=== PATIENT | female | born 1985 | race African-American/Black ===

== ENCOUNTER 2020-03-05 00:07 | Emergency (ER) | payer OTHER ==
[~2020-03-05] VITALS: Ht 157.5 cm; Wt 51.7 kg
[~2020-03-05 00:07] MED LIST: PRENATAL-FOLIC1 EACH PO
[2020-03-05] MEDS ORDERED: ROBAXIN-750750 MG PO (02:34)
[2020-03-05] MEDS ORDERED: KEFLEX500 MG PO (02:34)
--- NOTE | 2020-03-06 21:30 | EKG ---
[facility] [address] [place], [place] [address] Signed Normal sinus rhythm Normal ECG No previous ECGs available Confirmed by NIELS MERCADO MD ([id number]) on 03/06/2020 9:30:31 PM Electronically Signed By: NIELS MERCADO MD 03/06/200 PATIENT NAME: LYLE ROBISONMYNOR [place] Electrocardiogram DATE OF : 83 PHYSICIAN: NIELS MERCADO MD REPORT #: [id number] REPORT IS CONFIDENTIAL AND NOT TO BE RELEASED WITHOUT AUTHORIZATION
== END 2020-03-05 02:54 | disposition home or self-care (01) ==
LOC: ED 00:07
DX: S29.012A Strain of muscle and tendon of back wall of thorax, initial encounter (principal); N39.0 Urinary tract infection, site not specified; X58.XXXA Exposure to other specified factors, initial encounter
CPT/HCPCS: 72040; 72070; 81001; 84703; 87088; 93005; 93010; 99284-25